=== PATIENT | male | born 1960 | race Caucasian/White ===

== ENCOUNTER 2017-12-22 00:39 | Day surgery (SDC) | payer OTHER ==
[2017-12-22] VITALS (13 sets, daily range): BP systolic 81–147; BP diastolic 50–96
[~2017-12-22] VITALS: Ht 177.8 cm; Wt 76.2 kg
[~2017-12-22 00:39] MED LIST: MELO-207 PO
[2017-12-22] MEDS ORDERED: PROPOFOL EMUL(*) 10MG/ML 20 ML 40 ML ONE (07:43)
[2017-12-22] MEDS ORDERED: MIDAZOLAM 2 MG/2 ML VIAL IVP PRN (13:50)
[2017-12-22] MEDS ORDERED: LIDOCAINE/SOD BICARB 8.4% SYR ID ONE (13:50)
[2017-12-22] MEDS ORDERED: NORMOSOL R SOLN(*) 1000 ML BAG 1,000 ML IV PRN (13:50)
== END 2017-12-22 17:25 | disposition home or self-care (01) ==
LOC: OR 00:39
PROVIDERS: ATTEND Family Medicine
DX: Z12.11 Encounter for screening for malignant neoplasm of colon (principal)
CPT/HCPCS: 00812; 45378; 94667; J2704

== ENCOUNTER → 2018-07-14 | Outpatient (REF) ==
--- NOTE | 2018-07-14 10:07 | RADIOLOGY IMAGING REPORT ---
FACILITY: [facility] PATIENT NAME: Franklyn Hilario : 1960 MR: [id number] V: [id number] EXAM DATE: ORDERING PHYSICIAN: CHUCKY DOMINGUEZ TECHNOLOGIST: Location: [facility] Patient: Franklyn Hilario : 1960 Visit/Account:[id number] Date of Sevice: 07/14/2018 Single view of the chest Indication: Tobacco use, work physical. Comparison: X-ray examination of the chest June 2017 Findings: Heart size within normal limits. Lungs are clear. No pneumothorax or pleural effusion. No acute bony finding IMPRESSION: 1. No acute cardiopulmonary process. Report Dictated By: Moe Sanchez MD at 07/14/2018 10:03 AM Report E-Signed By: Moe Sanchez MD at 07/14/2018 10:05 AM WSN:[id number]
== END ==
LOC: RAD 09:27
PROVIDERS: ATTEND Physician Assistant Medical
DX: Z02.89 Encounter for other administrative examinations (principal)
CPT/HCPCS: 71045